=== PATIENT | male | born 1955 | race Caucasian/White ===

== ENCOUNTER → 2017-01-27 | Outpatient (CLI) | payer OTHER ==
[~2017-01-27] MED LIST: ALPR0.25 PO; ASPI-496; CYCL-259; FLUO10CA13; LISI-167; OMEP20CA9; REGADENOSON 0.4 MG/5 ML SYRINGE ONE; SIMV40TA3; WARF5TAB7; hydrocodone; hydrocodone PO
== END | disposition home or self-care (01) ==
LOC: CFH 07:37
PROVIDERS: ATTEND Internal Medicine Cardiovascular Disease
DX: I25.10 Atherosclerotic heart disease of native coronary artery without angina pectoris (principal); R29.898 Other symptoms and signs involving the musculoskeletal system
CPT/HCPCS: 78452; 93017; A9502; J2785; C9898

== ENCOUNTER 2017-03-03 06:16 | Observation (INO) | payer OTHER ==
[2017-02-28 09:34] VITALS: BP 150/88
[2017-02-28 10:13] LABS: ASPARTATE AMINO TRANSFERASE 11 U/L (15-37); BLOOD UREA NITROGEN 17 mg/dL (7-18)
[~2017-03-03] VITALS: Ht 170.2 cm; Wt 76.5 kg
[2017-03-03] MEDS: IPRATROPIUM 0.5 MG/2.5 ML INHA NPPB SCH ×3 (02:15→23:00)
[~2017-03-03 06:16] MED LIST changes: +AMLO2.5T PO; -ASPI-496; +ASPI-496 PO; +ATOR40TA PO; +FLUO40CA2 PO; +FLUT1BLS PO; +HYDR1TAB16 PO; -LISI-167; +LISI-167 PO; +NORFLEX PO; +OMEP40CA6 PO; +PROPOFOL 10 MG/ML, 50ML ONE; -REGADENOSON 0.4 MG/5 ML SYRINGE ONE; +TIOT18CA INH; +WARFARIN PO
[2017-03-03] MEDS: SODIUM CHLORIDE 0.9% 1,000 ML IV SCH ×2 (06:22→11:54)
[2017-03-03] MEDS ORDERED: VANCOMYCIN PMX 1GM/200ML 200 ML ONE (07:36)
[2017-03-03] MEDS ORDERED: VANCOMYCIN 500 MG ONE (07:36)
[2017-03-03] MEDS ORDERED: LIDOCAINE 2%, 20ML ONE (07:36)
[2017-03-03] MEDS ORDERED: FENTANYL PF 100 MCG/2ML ONE (07:48)
[2017-03-03] MEDS ORDERED: MIDAZOLAM 1 MG/ML, 5ML ONE (07:48)
[2017-03-03] MEDS ORDERED: OXYcodone 5 MG/5 ML ORAL.SOL UDC PO PRN (09:30)
[2017-03-03] MEDS ORDERED: MEPERIDINE/PF 25MG/0.5ML IVPush PRN (09:30)
[2017-03-03] MEDS ORDERED: ONDANSETRON 2MG/ML, 2ML IVPush PRN (09:30)
[2017-03-03] MEDS ORDERED: ACETAMINOPHEN 325 MG TABLET PO PRN (09:30)
[2017-03-03] MEDS ORDERED: FENTANYL PF 100 MCG/2ML IV PRN (09:30)
[2017-03-03] MEDS ORDERED: PROMETHAZINE 25 MG/ML, 1ML IV PRN (09:30)
[2017-03-03] MEDS ORDERED: MIDAZOLAM 1 MG/ML, 2ML IV PRN ×2 (09:30)
[2017-03-03] MEDS: HYDROmorphone 1 MG/ML, 1ML IV PRN ×2 (09:50→09:56)
[2017-03-03] MEDS ORDERED: HYDROmorphone 1 MG/ML, 1ML ONE (09:53)
[2017-03-03] MEDS ORDERED: OXYcodone 5 MG/5 ML ORAL.SOL UDC ONE (09:53)
[2017-03-03] MEDS ORDERED: ACETAMINOPHEN 650 MG/20.3 ML UDC ONE (09:53)
[2017-03-03] MEDS: HYDROcodone/APAP 10/325 MG TABLET PO SCH ×3 (11:54→21:00)
[2017-03-03 12:16] VITALS: BP 127/76
[2017-03-03] MEDS: HYDROcodone/APAP 5/325 TABLET PO PRN ×3 (15:53→21:02)
[2017-03-03] MEDS ORDERED: WARFARIN 7.5 MG TABLET PO-COUM SCH (18:00)
[2017-03-03] MEDS ORDERED: VANCOMYCIN PMX 1GM/200ML 200 ML IVPB SCH (19:30)
[2017-03-03 20:00] VITALS: BP 122/70
[2017-03-03] MEDS: ORPHENADRINE PO SCH (21:00)
[2017-03-03] MEDS ORDERED: ATORVASTATIN 40 MG TABLET PO SCH (21:00)
[2017-03-03] MEDS: SODIUM CHLORIDE FLUSH 10ML SYR IVF SCH (21:01)
[2017-03-03] MEDS: AMLODIPINE 2.5 MG TABLET PO SCH (21:01)
[2017-03-04] MEDS: HYDROcodone/APAP 5/325 TABLET PO PRN ×3 (00:42→08:59)
[2017-03-04 04:00] VITALS: BP 120/74
[2017-03-04] MEDS: IPRATROPIUM 0.5 MG/2.5 ML INHA NPPB SCH ×2 (05:00→11:00)
[2017-03-04] MEDS: HYDROcodone/APAP 10/325 MG TABLET PO SCH ×2 (05:25→11:00)
[2017-03-04 07:28] VITALS: BP 130/73
[2017-03-04] MEDS ORDERED: OMEPRAZOLE 20 MG CAPSULE.DR PO SCH (07:30)
[2017-03-04] MEDS: ORPHENADRINE PO SCH (07:55)
[2017-03-04] MEDS: AMLODIPINE 2.5 MG TABLET PO SCH (08:16)
[2017-03-04] MEDS: SODIUM CHLORIDE FLUSH 10ML SYR IVF SCH (08:16)
[2017-03-04] MEDS ORDERED: CARV3.12 PO (08:30)
[2017-03-04] MEDS ORDERED: FLUOXETINE 20 MG CAPSULE PO SCH (09:00)
[2017-03-04] MEDS ORDERED: LISINOPRIL 10 MG TABLET PO SCH (09:00)
[2017-03-04] MEDS ORDERED: ASPIRIN 81 MG TABLET EC PO SCH (09:00)
[2017-03-04] MEDS ORDERED: TEMPLATE NON-FORMULARY MED. (Tiotropium Bromide** (Spiriva**) 18 MCG) INH SCH (09:00)
[2017-03-04] MEDS ORDERED: FLUTICASONE/VILANTEROL 200-25MCG/INH INH SCH (09:00)
== END 2017-03-04 13:10 | disposition home or self-care (01) ==
LOC: CACL 06:16 → ORIP 10:05 → 5SO 10:36 → DCLOUNGE 03-04 12:46
PROVIDERS: ADMIT Internal Medicine Cardiovascular Disease; ATTEND Internal Medicine Cardiovascular Disease
DX: I25.5 Ischemic cardiomyopathy (principal); R00.1 Bradycardia, unspecified; I50.9 Heart failure, unspecified; I25.10 Atherosclerotic heart disease of native coronary artery without angina pectoris
CPT/HCPCS: 33249; 36005; 36415; 71010; 71020; 80053; 85025; 85610; 85730; 93005; 93641; 94640; 99156; 99157; C1721; C1779; C1892; G0378; J1170; J2250; J2704; J3010; J3370; J3490; J7030; Q9967; J7644